=== PATIENT | female | born 1930 | race Caucasian/White ===

== ENCOUNTER 2017-10-30 17:21 | Inpatient (IN) | payer MEDICARE, OTHER ==
[~2017-10-30] VITALS: Ht 160 cm; Wt 101.3 kg
[2017-10-30] MEDS ORDERED: SODIUM CHLORIDE 0.9% 2,000 ML IV ONE (20:42)
[2017-10-30] MEDS ORDERED: fentaNYL CITRATE 100 MCG/2 ML VL IV ONE (21:00)
[2017-10-30 23:25] LABS: Basophils # (auto) 0 uL; Basophils % (auto) 0.2 % (0.0-2.0); Eosinophils # (auto) 0.3 uL; Eosinophils % (auto) 2.2 % (0.0-7.0); Hematocrit 43.4 % (36.0-46.0); Hemoglobin 14.1 g/dL (12.2-16.2); Lymphocytes # (auto) 0.6 uL; Lymphocytes % (auto) 4.4 % (10.0-50.0); Mean Corpuscular Hgb Conc. 32.4 g/dL (32.0-36.0); Mean Corpuscular Volume 95.5 fL (80.0-100.0); Monocytes # (auto) 1.1 uL; Monocytes % (auto) 7.9 % (0.0-12.0); Neutrophils # (auto) 12.2 uL; Neutrophils % (auto) 85.3 % (37.0-80.0); Nucleated Red Blood Cells % 0.1 %; Platelet Count (auto) 275 10^3/uL (140-450); Red Blood Cells 4.55 10^6/uL (4.0-5.20); Red Cell Distribution Width 14.4 % (11.8-14.3); White Blood Cell 14.3 10^3/uL (4.4-10.8)
[2017-10-30] MEDS ORDERED: cefTRIAXone 1GM/10ml IVPUSH 10 ML IV ONE (23:30)
[2017-10-30 23:37] LABS: INR 0.98 (0.9-1.15); Partial Thromboplastin Time 27.5 sec (22.64-33.71); Prothrombin Time 10.7 sec (9.37-12.3)
[2017-10-30 23:45] LABS: Albumin 3.1 g/dL (3.4-5.0); Calcium 8.1 mg/dL (8.5-10.1); Potassium 4.3 mmol/L (3.5-5.1)
[2017-10-30 23:52] LABS: Bilirubin, Total 0.7 mg/dL (0.2-1.0); Total Protein 7.1 g/dL (6.4-8.2)
[2017-10-31] MEDS ORDERED: FUROSEMIDE 40 MG/4 ML VIAL IV ONE (00:15)
[2017-10-31] MEDS ORDERED: ACETAMINOPHEN 500 MG TAB PO ONE (00:15)
[2017-10-31] MEDS ORDERED: AZITHROMYCIN 500MG/ 250ML 250 ML IV ONE (00:15)
[2017-10-31] MEDS ORDERED: fentaNYL CITRATE 100 MCG/2 ML VL ONE (01:28)
[2017-10-31] MEDS ORDERED: fentaNYL CITRATE 100 MCG/2 ML VL IV ONE (01:40)
[2017-10-31] MEDS ORDERED: ONDANSETRON HCL 4 MG/2 ML VIAL IV ONE (02:15)
[2017-10-31] MEDS ORDERED: DEXTROSE (50%) 50ML SYRG IV PRN (02:15)
[2017-10-31 03:00] VITALS: BP 94/46
[2017-10-31 03:09] VITALS: BP 94/46
[2017-10-31 05:23] VITALS: BP 107/45
[2017-10-31] MEDS: MEPERIDINE HCL (25 MG/ML) 1ML VIAL IV PRN ×4 (06:22→22:35)
[2017-10-31] MEDS: ACCU-CHEK COMFORT CURVE STRIP VI SCH ×4 (06:28→22:34)
[2017-10-31 06:31] LABS: Basophils # (auto) 0 uL; Basophils % (auto) 0.2 % (0.0-2.0); Eosinophils # (auto) 0.1 uL; Eosinophils % (auto) 0.6 % (0.0-7.0); Hemoglobin 13.2 g/dL (12.2-16.2); Lymphocytes # (auto) 0.6 uL; Lymphocytes % (auto) 5.9 % (10.0-50.0); Mean Corpuscular Hemoglobin 31.4 pg (28.0-32.0); Mean Corpuscular Hgb Conc. 32.9 g/dL (32.0-36.0); Mean Corpuscular Volume 95.4 fL (80.0-100.0); Monocytes % (auto) 10.2 % (0.0-12.0); Neutrophils # (auto) 8.5 uL; Neutrophils % (auto) 83.1 % (37.0-80.0); Platelet Count (auto) 262 10^3/uL (140-450); Red Blood Cells 4.19 10^6/uL (4.0-5.20); Red Cell Distribution Width 14.4 % (11.8-14.3); White Blood Cell 10.3 10^3/uL (4.4-10.8)
[2017-10-31] MEDS: InsuLIN REG 1unit/0.01ml Soln (100units/ml) SC SCH ×4 (06:41→22:34)
[2017-10-31] MEDS: ONDANSETRON HCL 4 MG/2 ML VIAL IV PRN (06:41)
[2017-10-31 06:58] LABS: BUN/Creatinine Ratio 26.6; Potassium 4.8 mmol/L (3.5-5.1)
[2017-10-31] MEDS: LEVOTHYROXINE SODIUM 50 MCG TAB PO SCH (07:03)
[2017-10-31 07:40] LABS: Urine Bacteria NONE SEEN /hpf (None Seen); Urine Blood 1+ /uL (Negative); Urine Hyaline Cast FEW /lpf (0 - 2); Urine Mucus FEW (None Seen); Urine Specific Gravity 1.016 (1.001-1.035); Urine WBC 3 /hpf (0 - 5)
[2017-10-31 09:00] VITALS: BP 91/40
[2017-10-31] MEDS: CARVEDILOL 3.125 MG TAB PO SCH ×2 (10:00→22:33)
[2017-10-31] MEDS: FUROSEMIDE 40 MG/4 ML VIAL IV SCH (10:00)
[2017-10-31 15:26] LABS: INR 0.98 (0.9-1.15); Prothrombin Time 10.7 sec (9.37-12.3)
[2017-10-31 17:00] VITALS: BP 105/41
[2017-10-31] MEDS ORDERED: AZITHROMYCIN 500MG/ 250ML 250 ML IV SCH (21:00)
[2017-10-31] MEDS: cefTRIAXone 1GM/10ml IVPUSH 10 ML IV SCH (21:40)
[2017-10-31 22:00] VITALS: BP 120/60
[2017-10-31] MEDS ORDERED: ENOXAPARIN SOD 80 MG/0.8ML SYRINGE SC ONE (22:15)
[2017-11-01] VITALS (7 sets, daily range): BP systolic 106–125; BP diastolic 45–87
[2017-11-01 06:29] LABS: Albumin 2.7 g/dL (3.4-5.0); BUN/Creatinine Ratio 27.9; Bilirubin, Total 0.4 mg/dL (0.2-1.0); Potassium 4.9 mmol/L (3.5-5.1); Total Protein 6.3 g/dL (6.4-8.2)
[2017-11-01] MEDS: ACCU-CHEK COMFORT CURVE STRIP VI SCH ×4 (06:31→21:54)
[2017-11-01] MEDS: InsuLIN REG 1unit/0.01ml Soln (100units/ml) SC SCH ×6 (06:31→21:54)
[2017-11-01] MEDS: LEVOTHYROXINE SODIUM 50 MCG TAB PO SCH (06:31)
[2017-11-01] MEDS ORDERED: AZITHROMYCIN 500MG/ 250ML 250 ML IV SCH (09:00)
[2017-11-01] MEDS: MEPERIDINE HCL (25 MG/ML) 1ML VIAL IV PRN ×2 (09:58→14:53)
[2017-11-01] MEDS: CARVEDILOL 3.125 MG TAB PO SCH ×2 (09:59→21:53)
[2017-11-01] MEDS: FUROSEMIDE 40 MG/4 ML VIAL IV SCH (09:59)
[2017-11-01] MEDS: ONDANSETRON HCL 4 MG/2 ML VIAL IV PRN (13:41)
[2017-11-01 14:22] LABS: Basophils # (auto) 0 uL; Basophils % (auto) 0.2 % (0.0-2.0); Eosinophils # (auto) 0 uL; Eosinophils % (auto) 0.4 % (0.0-7.0); Hematocrit 37.2 % (36.0-46.0); Hemoglobin 12.3 g/dL (12.2-16.2); Lymphocytes # (auto) 0.5 uL; Lymphocytes % (auto) 5.5 % (10.0-50.0); Mean Corpuscular Hemoglobin 31.7 pg (28.0-32.0); Mean Corpuscular Volume 95.9 fL (80.0-100.0); Monocytes # (auto) 0.7 uL; Monocytes % (auto) 8.4 % (0.0-12.0); Neutrophils # (auto) 7.5 uL; Neutrophils % (auto) 85.5 % (37.0-80.0); Platelet Count (auto) 241 10^3/uL (140-450); Red Blood Cells 3.88 10^6/uL (4.0-5.20); Red Cell Distribution Width 14.1 % (11.8-14.3); White Blood Cell 8.7 10^3/uL (4.4-10.8)
[2017-11-01] MEDS ORDERED: INSU100I4 SC (15:56)
[2017-11-01] MEDS ORDERED: INSUINJ37 SC (15:56)
[2017-11-01] MEDS ORDERED: INSLISPI SC (15:56)
[2017-11-01] MEDS ORDERED: FLUC150T41 PO (15:56)
[2017-11-01] MEDS ORDERED: [UNRECOGNIZED DRUG - CODE] OR (15:56)
[2017-11-01] MEDS ORDERED: TORS20TA20 PO (15:56)
[2017-11-01] MEDS ORDERED: DICL1GEL26 TOP (15:56)
[2017-11-01] MEDS ORDERED: FURO40TA4 PO (15:56)
[2017-11-01] MEDS ORDERED: CARV6.2551 PO (15:56)
[2017-11-01] MEDS ORDERED: CRAN400T6 PO (15:56)
[2017-11-01] MEDS ORDERED: LEVO125T66 PO (15:56)
[2017-11-01] MEDS ORDERED: LOPE2CAP PO (15:56)
[2017-11-01] MEDS ORDERED: GLIP-115 PO (15:56)
[2017-11-01] MEDS ORDERED: TRET0.0212 TOP (15:56)
[2017-11-01] MEDS ORDERED: CLOT1CRE13 TOP (15:56)
[2017-11-01] MEDS ORDERED: LOS25T GT (15:56)
[2017-11-01] MEDS ORDERED: GLUC-244 VI (15:56)
[2017-11-01] MEDS ORDERED: APIX2.5T OR (15:56)
[2017-11-01] MEDS: ALBUTEROL SULF 2.5 MG/0.5ML(0.5%) NEB SOLN NEB SCH (19:15)
[2017-11-01] MEDS: IPRATROPIUM BROM 0.5 MG/2.5ML INH SOL NEB SCH (19:15)
[2017-11-01] MEDS: APIXABAN 2.5 MG TAB PO SCH (21:53)
[2017-11-01] MEDS: cefTRIAXone 1GM/10ml IVPUSH 10 ML IV SCH (21:53)
[2017-11-01] MEDS: ACETAMINOPHEN 500 MG TAB PO PRN (21:54)
[2017-11-02 05:19] VITALS: BP 117/46
[2017-11-02 06:05] LABS: Basophils # (auto) 0 uL; Basophils % (auto) 0.2 % (0.0-2.0); Eosinophils # (auto) 0.1 uL; Eosinophils % (auto) 0.7 % (0.0-7.0); Hematocrit 35.7 % (36.0-46.0); Hemoglobin 11.9 g/dL (12.2-16.2); Lymphocytes # (auto) 0.7 uL; Lymphocytes % (auto) 7.5 % (10.0-50.0); Mean Corpuscular Hemoglobin 31.8 pg (28.0-32.0); Mean Corpuscular Hgb Conc. 33.2 g/dL (32.0-36.0); Mean Corpuscular Volume 95.6 fL (80.0-100.0); Monocytes # (auto) 1.1 uL; Monocytes % (auto) 13.2 % (0.0-12.0); Neutrophils # (auto) 6.8 uL; Neutrophils % (auto) 78.4 % (37.0-80.0); Platelet Count (auto) 234 10^3/uL (140-450); Red Blood Cells 3.74 10^6/uL (4.0-5.20); Red Cell Distribution Width 14.1 % (11.8-14.3); White Blood Cell 8.7 10^3/uL (4.4-10.8)
[2017-11-02 06:21] LABS: BUN/Creatinine Ratio 32.7; Calcium 8.4 mg/dL (8.5-10.1); Potassium 4.8 mmol/L (3.5-5.1)
[2017-11-02] MEDS: LEVOTHYROXINE SODIUM 50 MCG TAB PO SCH (06:22)
[2017-11-02] MEDS: ACCU-CHEK COMFORT CURVE STRIP VI SCH ×4 (06:23→22:06)
[2017-11-02] MEDS: InsuLIN REG 1unit/0.01ml Soln (100units/ml) SC SCH ×4 (06:23→22:07)
[2017-11-02] MEDS: MEPERIDINE HCL (25 MG/ML) 1ML VIAL IV PRN ×3 (06:23→23:47)
[2017-11-02] MEDS: IPRATROPIUM BROM 0.5 MG/2.5ML INH SOL NEB SCH ×4 (06:53→20:02)
[2017-11-02] MEDS: ALBUTEROL SULF 2.5 MG/0.5ML(0.5%) NEB SOLN NEB SCH ×4 (06:53→20:03)
[2017-11-02 08:00] VITALS: BP 117/46
[2017-11-02 09:00] VITALS: BP 125/57
[2017-11-02] MEDS: APIXABAN 2.5 MG TAB PO SCH ×2 (09:44→22:06)
[2017-11-02] MEDS: AZITHROMYCIN 250 MG TAB PO SCH (09:44)
[2017-11-02] MEDS: CARVEDILOL 3.125 MG TAB PO SCH ×2 (09:45→22:06)
[2017-11-02] MEDS: FUROSEMIDE 40 MG TAB PO SCH (09:46)
[2017-11-02 13:00] VITALS: BP 118/47
[2017-11-02] MEDS: ACETAMINOPHEN 500 MG TAB PO PRN ×2 (13:25→21:03)
[2017-11-02 16:21] VITALS: BP 112/45
[2017-11-02] MEDS: cefTRIAXone 1GM/10ml IVPUSH 10 ML IV SCH (22:06)
[2017-11-02 23:22] VITALS: BP 119/58
[2017-11-03] MEDS: ALBUTEROL SULF 2.5 MG/0.5ML(0.5%) NEB SOLN NEB SCH ×4 (00:49→22:11)
[2017-11-03] MEDS: IPRATROPIUM BROM 0.5 MG/2.5ML INH SOL NEB SCH ×4 (00:49→22:11)
[2017-11-03] MEDS: MEPERIDINE HCL (25 MG/ML) 1ML VIAL IV PRN ×3 (04:11→22:29)
[2017-11-03 05:46] VITALS: BP 121/55
[2017-11-03] MEDS: InsuLIN REG 1unit/0.01ml Soln (100units/ml) SC SCH ×4 (06:03→22:05)
[2017-11-03] MEDS: LEVOTHYROXINE SODIUM 50 MCG TAB PO SCH (06:03)
[2017-11-03] MEDS: ACCU-CHEK COMFORT CURVE STRIP VI SCH ×4 (06:04→21:52)
[2017-11-03] MEDS: ONDANSETRON HCL 4 MG/2 ML VIAL IV PRN ×2 (06:16→17:53)
[2017-11-03] MEDS: ACETAMINOPHEN 500 MG TAB PO PRN (08:05)
[2017-11-03 08:10] VITALS: BP 121/48
[2017-11-03] MEDS: AZITHROMYCIN 250 MG TAB PO SCH (10:28)
[2017-11-03] MEDS: APIXABAN 2.5 MG TAB PO SCH ×2 (10:28→21:52)
[2017-11-03] MEDS: FUROSEMIDE 40 MG TAB PO SCH (10:30)
[2017-11-03] MEDS: CARVEDILOL 3.125 MG TAB PO SCH ×2 (10:30→22:04)
[2017-11-03 12:11] VITALS: BP 132/56
[2017-11-03 16:52] VITALS: BP 109/45
[2017-11-03] MEDS: cefTRIAXone 1GM/10ml IVPUSH 10 ML IV SCH (21:52)
[2017-11-03 22:00] VITALS: BP 122/51
[2017-11-04] MEDS: MEPERIDINE HCL (25 MG/ML) 1ML VIAL IV PRN ×4 (02:27→22:39)
[2017-11-04 05:24] VITALS: BP 127/55
[2017-11-04] MEDS: InsuLIN REG 1unit/0.01ml Soln (100units/ml) SC SCH ×4 (06:14→22:00)
[2017-11-04] MEDS: ACCU-CHEK COMFORT CURVE STRIP VI SCH ×4 (06:14→22:00)
[2017-11-04] MEDS: LEVOTHYROXINE SODIUM 50 MCG TAB PO SCH (06:14)
[2017-11-04] MEDS: IPRATROPIUM BROM 0.5 MG/2.5ML INH SOL NEB SCH ×3 (06:39→18:55)
[2017-11-04] MEDS: ALBUTEROL SULF 2.5 MG/0.5ML(0.5%) NEB SOLN NEB SCH ×3 (06:39→18:55)
[2017-11-04 07:18] LABS: Calcium 8.2 mg/dL (8.5-10.1); Potassium 5.2 mmol/L (3.5-5.1)
[2017-11-04 09:00] VITALS: BP 129/52
[2017-11-04 10:24] VITALS: BP 129/52
[2017-11-04] MEDS: ONDANSETRON HCL 4 MG/2 ML VIAL IV PRN ×2 (11:09→22:39)
[2017-11-04] MEDS: AZITHROMYCIN 250 MG TAB PO SCH (11:10)
[2017-11-04] MEDS: FUROSEMIDE 40 MG TAB PO SCH (11:11)
[2017-11-04] MEDS: CARVEDILOL 3.125 MG TAB PO SCH ×2 (11:11→22:44)
[2017-11-04] MEDS: APIXABAN 2.5 MG TAB PO SCH ×2 (11:11→22:44)
[2017-11-04 13:00] VITALS: BP 129/54
[2017-11-04] MEDS: ACETAMINOPHEN 500 MG TAB PO PRN (13:32)
[2017-11-04 17:00] VITALS: BP 128/51
[2017-11-04] MEDS: cefTRIAXone 1GM/10ml IVPUSH 10 ML IV SCH (21:00)
[2017-11-04 22:32] VITALS: BP 127/69
[2017-11-05] MEDS: ALBUTEROL SULF 2.5 MG/0.5ML(0.5%) NEB SOLN NEB SCH ×3 (00:27→12:08)
[2017-11-05] MEDS: IPRATROPIUM BROM 0.5 MG/2.5ML INH SOL NEB SCH ×4 (00:27→18:47)
[2017-11-05 05:41] VITALS: BP 133/56
[2017-11-05] MEDS: MEPERIDINE HCL (25 MG/ML) 1ML VIAL IV PRN ×3 (06:17→15:54)
[2017-11-05] MEDS: ONDANSETRON HCL 4 MG/2 ML VIAL IV PRN ×3 (06:17→15:54)
[2017-11-05] MEDS: LEVOTHYROXINE SODIUM 50 MCG TAB PO SCH (06:18)
[2017-11-05] MEDS: InsuLIN REG 1unit/0.01ml Soln (100units/ml) SC SCH ×3 (06:47→17:00)
[2017-11-05] MEDS: ACCU-CHEK COMFORT CURVE STRIP VI SCH ×3 (06:48→17:39)
[2017-11-05 09:00] VITALS: BP 116/6
[2017-11-05 09:42] LABS: BUN/Creatinine Ratio 28.6; Calcium 8.4 mg/dL (8.5-10.1)
[2017-11-05] MEDS: AZITHROMYCIN 250 MG TAB PO SCH (09:49)
[2017-11-05] MEDS: APIXABAN 2.5 MG TAB PO SCH (09:49)
[2017-11-05] MEDS: CARVEDILOL 3.125 MG TAB PO SCH (09:50)
[2017-11-05] MEDS: FUROSEMIDE 40 MG TAB PO SCH (09:50)
[2017-11-05 13:00] VITALS: BP 128/50
[2017-11-05] MEDS: ACETAMINOPHEN 500 MG TAB PO PRN (14:47)
[2017-11-05 17:14] VITALS: BP 113/52
[2017-11-05] MEDS ORDERED: LORazepam 0.5 MG TAB PO ONE (19:45)
[2017-11-05] MEDS: cefTRIAXone 1GM/10ml IVPUSH 10 ML IV SCH (21:00)
[2017-11-05 21:50] VITALS: BP 122/53
== END 2017-11-05 22:05 | DRG 291 ==
LOC: EDBD 17:21 → ER 17:42 → TELE 17:43 → TELE-WESTW 10-31 02:35 → WEST WING 11-03 14:43
PROVIDERS: ADMIT Nurse Practitioner Family; ATTEND Internal Medicine
DX: I11.0 Hypertensive heart disease with heart failure (principal); J18.9 Pneumonia, unspecified organism; E44.0 Moderate protein-calorie malnutrition; J96.10 Chronic respiratory failure, unspecified whether with hypoxia or hypercapnia; D68.59 Other primary thrombophilia; E66.01 Morbid (severe) obesity due to excess calories; E87.1 Hypo-osmolality and hyponatremia; I48.91 Unspecified atrial fibrillation; J44.0 Chronic obstructive pulmonary disease with (acute) lower respiratory infection; J44.1 Chronic obstructive pulmonary disease with (acute) exacerbation; L03.115 Cellulitis of right lower limb; L03.116 Cellulitis of left lower limb; S82.102A Unspecified fracture of upper end of left tibia, initial encounter for closed fracture; I50.43 Acute on chronic combined systolic (congestive) and diastolic (congestive) heart failure; E03.9 Hypothyroidism, unspecified; E11.9 Type 2 diabetes mellitus without complications; I25.10 Atherosclerotic heart disease of native coronary artery without angina pectoris; M41.9 Scoliosis, unspecified; M19.90 Unspecified osteoarthritis, unspecified site; W18.39XA Other fall on same level, initial encounter; Y93.89 Activity, other specified; Y92.89 Other specified places as the place of occurrence of the external cause; Z79.899 Other long term (current) drug therapy; Z90.49 Acquired absence of other specified parts of digestive tract; Z88.1 Allergy status to other antibiotic agents; Z95.0 Presence of cardiac pacemaker; Z79.4 Long term (current) use of insulin; Z88.5 Allergy status to narcotic agent; Z88.8 Allergy status to other drugs, medicaments and biological substances; Z88.2 Allergy status to sulfonamides; Z68.39 Body mass index [BMI] 39.0-39.9, adult
CPT/HCPCS: 36415; 51702; 71020; 71045; 73560; 73590; 80048; 80053; 81001; 82962; 83036; 83735; 83880; 84100; 84443; 84484; 85025; 85610; 85730; 87040; 87070; 87081; 87086; 87205; 93005; 93306; 93971; 94640; 94761; 96374; 96375; 96376; J1815; J2405

== ENCOUNTER 2018-04-07 17:39 | Emergency (ER) | payer MEDICARE, OTHER ==
[~2018-04-07] VITALS: Ht 175.3 cm; Wt 81.6 kg
[~2018-04-07 17:39] MED LIST: APIX2.5T OR; CARV6.2551 PO; CLOT1CRE13 TOP; CRAN400T6 PO; DICL1GEL26 TOP; FLUC150T41 PO; FURO40TA4 PO; GLIP-115 PO; GLUC-244 VI; INSLISPI SC; INSU100I4 SC; INSUINJ37 SC; LEVO125T66 PO; LOPE2CAP PO; LOS25T GT; TORS20TA20 PO; TRET0.0212 TOP; [UNRECOGNIZED DRUG - CODE] OR
[2018-04-07 19:36] LABS: Basophils # (auto) 0 uL; Basophils % (auto) 0.5 % (0.0-2.0); Eosinophils # (auto) 0.7 uL; Eosinophils % (auto) 7.7 % (0.0-7.0); Hematocrit 41.7 % (36.0-46.0); Lymphocytes % (auto) 11.3 % (10.0-50.0); Mean Corpuscular Hemoglobin 30.6 pg (28.0-32.0); Mean Corpuscular Hgb Conc. 33.7 g/dL (32.0-36.0); Mean Corpuscular Volume 90.9 fL (80.0-100.0); Monocytes % (auto) 11.5 % (0.0-12.0); Neutrophils # (auto) 6.2 uL; Nucleated Red Blood Cells % 0.1 %; Platelet Count (auto) 316 10^3/uL (140-450); Red Blood Cells 4.59 10^6/uL (4.0-5.20); Red Cell Distribution Width 14.8 % (11.8-14.3)
[2018-04-07 19:57] LABS: Albumin 2.8 g/dL (3.4-5.0); BUN/Creatinine Ratio 18.5; Calcium 8.7 mg/dL (8.5-10.1); Potassium 4.9 mmol/L (3.5-5.1)
[2018-04-07 19:59] LABS: Bilirubin, Total 0.3 mg/dL (0.2-1.0); Total Protein 6.7 g/dL (6.4-8.2)
[2018-04-07 20:44] VITALS: BP 139/61
[2018-04-07 21:11] LABS: Urine Bacteria MOD /hpf (None Seen); Urine Blood 2+ /uL (Negative); Urine Specific Gravity 1.012 (1.001-1.035); Urine WBC 25 /hpf (0 - 5)
[2018-04-07 21:31] LABS: INR 0.97 (0.9-1.15); Partial Thromboplastin Time 29.2 sec (23.78-33.04); Prothrombin Time 10.4 sec (9.27-12.13)
== END 2018-04-07 21:27 | disposition home or self-care (01) ==
LOC: EDBD 17:39 → ER 17:45
DX: N93.9 Abnormal uterine and vaginal bleeding, unspecified (principal); E87.8 Other disorders of electrolyte and fluid balance, not elsewhere classified; R53.1 Weakness; M19.90 Unspecified osteoarthritis, unspecified site; I25.10 Atherosclerotic heart disease of native coronary artery without angina pectoris; I11.0 Hypertensive heart disease with heart failure; I50.9 Heart failure, unspecified; J44.9 Chronic obstructive pulmonary disease, unspecified; E11.9 Type 2 diabetes mellitus without complications; E07.9 Disorder of thyroid, unspecified; Z88.1 Allergy status to other antibiotic agents; Z88.6 Allergy status to analgesic agent; Z79.4 Long term (current) use of insulin; Z90.49 Acquired absence of other specified parts of digestive tract; Z95.0 Presence of cardiac pacemaker; Z99.81 Dependence on supplemental oxygen
CPT/HCPCS: 36415; 51702; 80053; 81001; 85025; 85610; 85730